=== PATIENT | female | born 2005 | race Caucasian/White ===

== ENCOUNTER 2024-07-24 15:47 | Emergency (ER) | payer OTHER, SELFPAY ==
[2024-07-24 15:54] VITALS: BP 125/89; PULSE 115; TEMP 37; O2SAT 99; BMI 33.8
--- NOTE | 2024-07-24 17:27 | ED_ITS ---
HPI HPI - General Adult General Chief complaint: Upper Respiratory Infection Stated complaint: VOMITING, FEVER, STOMACH PAINS Time Seen by Provider: 07/24/24 16:50 Source: patient Mode of arrival: walk-in History of Present Illness HPI narrative: Patient is a 18-year-old female who is presenting to the ER with chief complaint of flulike symptoms today. Patient is having myalgia, arthralgia, nausea and vomiting, intermittent fever and chills, and not feeling well. Patient has had several exposures to influenza A. Patient is tachycardic, patient states she is very anxious in the hospital and when she is in the emergency room, patient is not concerned about her elevated heart rate at all and does not want further testing for that. Patient's chief concern is nausea and vomiting. Patient did have a Zofran that she took at home earlier with some relief but then the nausea vomiting came back. She is also having loose stool/diarrhea. Patient father is at bedside. Patient has no other acute complaints. Patient was hoping that we could help fix her nausea vomiting diarrhea today. All systems are negative except as noted/marked. All systems reviewed and otherwise negative. Nurses note and vital signs reviewed and patient is not hypoxic. General: The patient appears well and in no apparent distress. Patient is resting comfortably on cart. Patient is not toxic, lethargic, or listless Skin: Warm, dry, no pallor noted. There is no rash noted. No petechiae, purpura. Head: Normocephalic, atraumatic Eye: Normal conjunctiva, no drainage, EOMI. PERRL Ears, Nose, Mouth, and Throat: oral mucosa is moist. Nares patent. Mouth without vesicles. Cardiovascular: Regular Rate and Rhythm, no murmur, gallop, rub Respiratory: Patient is in no distress, no accessory muscle use, lungs are clear to auscultation, no wheezing, rales or rhonchi Back: non-tender, no CVA tenderness bilaterally to percussion. No CT LS midline pain GI: no tenderness to palpation, no masses appreciated. No rebound, guarding, or rigidity noted. No distention Musculoskeletal: Patient has full range of motion of all of the extremities, no motor, sensory, or focal neurological deficits Neurological: A&O x4, normal speech Psychiatric: Cooperative Related Data Previous Rx's ?Medication ?Instructions ?Recorded ondansetron 4 mg disintegrating 4 mg PO Q4H PRN nausea and 07/24/24 tablet vomiting 3 days #6 tabs oseltamivir 75 mg capsule (Tamiflu) 75 mg PO BID 5 days #10 caps 07/24/24 promethazine 25 mg rectal 25 mg MS Q6H PRN nausea and 07/24/24 suppository vomiting #6 ea Allergies Allergy/AdvReac Type Severity Reaction Status Date / Time No Known Drug Allergies Allergy Verified 07/24/24 15:58 Opioid HPI Opioid Management Most Recent Opioid Data: No Data to Display PFSH PFSH Social History Little interest or pleasure in doing things: not at all Feeling down, depressed, or hopeless: not at all Exam Constitutional Vital Signs, click to edit/add: Last Vital Signs Temp 98.6 F 07/24/24 15:54 Pulse 115 H 07/24/24 15:54 Resp 18 07/24/24 15:54 BP 125/89 07/24/24 15:54 Pulse Ox 99 07/24/24 15:54 O2 Del Method Room Air 07/24/24 15:54 Course Vital Signs Vital signs: Vital Signs Temperature 98.6 F 07/24/24 15:54 Pulse Rate 115 H 07/24/24 15:54 Respiratory Rate 18 07/24/24 15:54 Blood Pressure 125/89 07/24/24 15:54 Pulse Oximetry 99 07/24/24 15:54 Oxygen Delivery Method Room Air 07/24/24 15:54 Temperature 98.6 F 07/24/24 15:54 Pulse Rate 115 H 07/24/24 15:54 Respiratory Rate 18 07/24/24 15:54 Blood Pressure 125/89 07/24/24 15:54 Pulse Oximetry 99 07/24/24 15:54 Oxygen Delivery Method Room Air 07/24/24 15:54 Medical Decision Making MDM Narrative Medical decision making narrative: Patient was given oral Zofran and IM Phenergan. Patient was sent home with refill of her Zofran ODT and Phenergan suppositories. Education on treating diarrhea with increasing fluids at home was discussed as well. Patient will be placed on Tamiflu. Education on Tamiflu was done. Patient did not want any ad ditional testing for her mild tachycardia, patient states that she is normal tachycardic and anxious in the hospitals in the ER, and she is aware of the heart rate of 115 and wants nothing done about it. Patient will be sent home with prescriptions to treat her symptoms, no question at discharge. Discharge Plan Discharge Chief Complaint: Upper Respiratory Infection Clinical Impression: Influenza A, Nausea and vomiting, Diarrhea Patient Disposition: Home, Self-Care Time of Disposition Decision: 17:33 Condition: Fair Prescriptions / Home Meds: New promethazine 25 mg suppository 25 mg MS Q6H PRN (Reason: nausea and vomiting) Qty: 6 0RF ondansetron 4 mg tablet,disintegrating 4 mg PO Q4H PRN (Reason: nausea and vomiting) 3 Days Qty: 6 0RF oseltamivir [Tamiflu] 75 mg capsule 75 mg PO BID 5 Days Qty: 10 0RF Print Language: Jamaican Instructions: Influenza (ED), Acute Nausea and Vomiting (ED), Acute Diarrhea (ED) Additional Instructions: Increase fluids, Gatorade, Powerade, water. Use Zofran ODT as needed for nausea vomiting, use Phenergan suppository as backup for nausea vomiting if needed. Use Tamiflu as indicated. Increase fluids at home, Gatorade, Powerade, or water. Alternate using DayQuil, NyQuil, and Flonase. Add Mucinex as well as needed. Alternate Tylenol and Motrin every 4 hours to help with fever control, body aches or joint pain. Use [id number] vitamin C, vitamin D3, and zinc to help fight infection and help with her immune system. Referrals: Physician,Non-Staff, MD [Primary Care Provider] - 1 week
[2024-07-24] MEDS: PROMETHAZINE HCL 25 MG/ML VIAL IM (17:29)
[2024-07-24] MEDS: ONDANSETRON 4 MG RAPDIS TABLET SL (17:29)
== END 2024-07-24 18:14 | disposition home or self-care (01) ==
PROVIDERS: Emergency Provider Emergency Medicine
DX: J10.1 Influenza due to other identified influenza virus with other respiratory manifestations (principal); R11.2 Nausea with vomiting, unspecified; R19.7 Diarrhea, unspecified
CPT/HCPCS: 96372; 99284; J2550; Q0162